=== PATIENT | female | born 1960 | race Two or more races ===

== ENCOUNTER 2024-12-14 10:25 | Outpatient (CLI) | payer OTHER | END 2024-12-14 10:40 | disposition home or self-care (01) | LOC: SONOGRAMA 10:25 | PROVIDERS: ATTEND Pathology Anatomic Pathology & Clinical Pathology | DX: D34 Benign neoplasm of thyroid gland (principal); D44.0 Neoplasm of uncertain behavior of thyroid gland; E07.89 Other specified disorders of thyroid ==